=== PATIENT | male | born 1960 | race Caucasian/White ===

== ENCOUNTER 2023-08-19 06:25 | Day surgery (SDC) | payer OTHER, SELFPAY ==
[2023-08-03 07:59] VITALS: BMI 30.4
[2023-08-03 08:27] LABS: % Basophils 0.6 % (0-2); % Eosinophils 2.1 % (0-6); % Immature Granulocytes 0.4 % (0-0.5); % Lymphocytes 27.1 % (20.5-51.1); % Monocytes 9.7 % (1.7-9.3); % Neutrophils 60.1 % (42.2-75.2); Absolute Eosinophils 0.1 10^3/uL (0-0.7); Absolute Lymphocytes 1.3 10^3/uL (1.2-3.4); Absolute Monocytes 0.5 10^3/uL (0.1-0.6); Absolute Neutrophils 2.8 10^3/uL (1.4-6.5); Hemoglobin 14.4 g/dL (13.0-18.0); Mean Corp Hgb Conc. 34.3 g/dL (33.0-37.0); Mean Corpuscular Hgb 32.7 pg (27.0-31.0); Mean Corpuscular Volume 95.5 fL (80.0-94.0); Mean Platelet Volume 10.4 fL (7.4-10.4); Nucleated Red Blood Cells % 0 % (-); Platelet Count 234 10^3/uL (130-400); Red Cell Dist. Width 12.4 % (11.5-14.5); White Blood Cell Count 4.7 10^3/uL (4.8-10.8)
[2023-08-03 08:32] LABS: INR 1.19; PT 15.1 Sec (11.4-14.6)
[2023-08-03 08:33] LABS: ALT (SGPT) 14 U/L (0-50); AST (SGOT) 20 U/L (17-59); Albumin 3.7 g/dl (3.5-5.0); Alkaline Phosphatase 65 U/L (38-126); Blood Urea Nitrogen 18 mg/dl (9-20); Carbon Dioxide 27 mmol/L (22-30); Chloride 104 mmol/L (98-107); Estimated Creatinine Clearance 101 ml/min; Glucose 120 mg/dl (70-99); Magnesium 2.3 mg/dl (1.6-2.3); Potassium 4.6 mmol/L (3.5-5.1); Sodium 139 mmol/L (135-145); Total Bilirubin 0.6 mg/dl (0.2-1.3); Total Protein 6.3 g/dl (6.3-8.2); eGFR > 60.00
--- NOTE | 2023-08-03 14:54 | W.PN.UPDATE ---
Update Note
Progress Note Update
Pulmonary nodules incidentally noted on chest CT--faxed to PCP Dr. Mason Arango
--- NOTE | 2023-08-15 08:18 | OID.L.PAT ---
Pulmonary Nodule Pat Letter
- -
08/15/23
BUBBA BANUELOS
[address]
[place], [place]
Dear BUBBA,
A pulmonary nodule was seen on an imaging study done by [facility]. This was reviewed by the [facility] Pulmonary Nodule Advisory Board and the following recommendation was made:
Recommendation: Follow up with a Consulting Analyst
If you have any questions, please do not hesitate to contact your primary care physician. If you are in need of a Physician, you can go to [email or web address] and click on 'Find a Provider'. Type 'Family Medicine' in the search.
Oncology Nurse Navigator
[facility]
[phone]
--- NOTE | 2023-08-15 08:19 | OID.L.REC ---
Pulmonary Nodule Follow Up
- Recommendation
08/15/23
Pulmonary Nodule Review Recommendations
Your patient, BUBBA BANUELOS, had a pulmonary nodule seen on a CT Chest done on 08/03/23 in the [facility] Radiology Department.
This was reviewed by the [facility] Pulmonary Nodule Advisory Board and the following recommendation was made:
Recommendation: Follow up with a Shank Burnisher
If you have any questions please do not hesitate to contact us.
Sincerely,
Oncology Nurse Navigator
[facility]
[phone]
[2023-08-19] VITALS (19 sets, daily range): BP systolic 92–124; BP diastolic 59–80; BMI 29.8
--- NOTE | 2023-08-19 14:40 | ITS.CL.ABL ---
Director Of Financial Reporting - Ablation
Ablation
Procedure Report:
Primary Aviation Maintenance Instructor: Bartolo Hurtado MD
Procedure Date: 08/19/2023
Procedure
Electrophysiology Study, with RA, CS pacing and recording
Radiofrequency Ablation of Counterclockwise Cavotricuspid Isthmus-dependent Right Atrial Flutter
Three-dimensional Electroanatomic Mapping and Navigation
Patient History
See H&P for complete details
Patient is a pleasant 63 year old male with a past medical history significant for symptomatic persistent typical atrial flutter. Patient had early recurrence of typical AFL despite cardioversion.
Method
After informed consent was obtained, the patient was brought to the EP lab in a post-absorptive, non-sedated state. A peripheral IV was in place. Continuous electrocardiography, blood pressure and pulse oximetry monitoring were initiated and
cardioversion / defibrillator patch electrodes were positioned on the chest in an anterior-posterior orientation. Sedation was administered via the anesthesia services. A time-out was called. Local anesthesia was administered at the right and left
femoral vein access sites. Vascular access was achieved using modified Seldinger technique, and 3 sheaths were placed.
The patient entered the room in sinus rhythm/sinus bradycardia. A multipolar catheter were advanced to the coronary sinus. A mapping / ablation catheter was used to record and pace. Intracardiac ultrasound (ICE) was utilized for structural
assessment and monitoring. No evidence of pericardial effusion pre or post procedure. Three-dimensional electroanatomic mapping was utilized. Catheter ablation in the right atrium was performed as described below. Clockwise and counterclockwise
transisthmus time was determined prior to ablation. Through atrial extrastimuli and burst pacing atrial flutter initiation was attempted however patient was noninducible for arrhythmia. Ablation line was established from the tricuspid valve annulus
to the IVC-RA junction. Clockwise and counterclockwise trans-isthmus times were determined, and RA activation patterns confirmed bidirectional block. Interval measurements in NSR were made pre and post ablation. A waiting period was observed and
measurements were reassessed. Arrhythmia induction was attempted again and patient remained non-inducible.clockwise and counterclockwise transisthmus times remained prolonged and demonstrated bidirectional block. Following this, the procedure was
concluded.
At the end of the procedure, all catheters and sheaths were removed, hemostasis was assured in the standard fashion, and the patient was taken to the recovery area in stable condition.
Conduction Intervals (pre-ablation, in ms)
A-H H-V P-R QRS dur Q-T
77 47 166 88 408
Conduction Intervals (post-ablation, in ms)
A-H H-V P-R QRS dur Q-T
81 44 147 76 402
AV Conduction:
AVWB at 360 ms
AV Node ERP 600/250
AERP 600/250
No arrhythmia was inducible post ablation
Mapping and Ablation
Utilizing electroanatomic three-dimensional navigation, a 3.5 mm tip [employer] irrigated ablation catheter was advanced to the right atrium with the assistance of an 11.5 Fr Agilis steerable long sheath. An electroanatomic three-dimensional map
of the right atrium was constructed, with careful attention to anatomic landmarks, including the coronary sinus, IVC-RA and SVC-RA junction, tricuspid valve annulus, and region of the His bundle electrogram.
An ablation line was created from the tricuspid annulus to the IVC in the 6:00 position (BELIZEAN clock). Power was titrated between 30 and 40 Palmer. The line was completed and bidirectional block was confirmed with lateral pacing from the ablation
catheter and from the CS pacing. The ablation line was mapped to ensure widely spaced double potentials, and after a 20 minute waiting period, bidirectional block persisted. No arrhythmia was induced post-procedure. No evidence of AF noted during
procedure.
Ablation Summary
Total ablation time: 8 minutes 54 seconds
Estimated Blood Loss
<20 mL
Fluoroscopy Time 2.4
Radiation Dose 8.92 mGy
DAP 1.05
Complications
None
Conclusions
1. Successful ablation of the cavotricuspid isthmus with bidirectional block.
2. No inducible arrhythmias post-procedure
Recommendations
- Anticipate discharge home today
- Bedrest with straight leg precautions for four hours
- Resume anticoagulation tonight if patient/groins stable
- Continue remaining home medications as indicated
- Follow-up in clinic in 4-6 weeks or sooner if needed
Сергей Hwang,
Clinical Cardiac Electrophysiology
cc: Bartolo Hurtado MD; Tyler Tuttle MD
== END 2023-08-19 14:53 | disposition home or self-care (01) ==
LOC: CATH 06:25
PROVIDERS: ATTENDING PHYSICIAN Internal Medicine Cardiovascular Disease; FAMILY PHYSICIAN Family Medicine; OTHER PHYSICIAN Internal Medicine Cardiovascular Disease
DX: I48.92 Unspecified atrial flutter (principal); I48.0 Paroxysmal atrial fibrillation; E78.5 Hyperlipidemia, unspecified; I87.2 Venous insufficiency (chronic) (peripheral); L40.9 Psoriasis, unspecified; Z79.01 Long term (current) use of anticoagulants
CPT/HCPCS: C1894; C1766; C2630; C1759; 36415; 75572; 76937; 80053; 83735; 85025; 85610; 86850; 86900; 86901; 93005; 93653; Q9967

== ENCOUNTER 2024-01-05 17:44 | Emergency (ER) | payer BC, SELFPAY ==
[2024-01-05 17:46] VITALS: BP 171/95
[2024-01-05 18:07] LABS: % Basophils 0.2 % (0-2); % Eosinophils 0.4 % (0-6); % Immature Granulocytes 0.3 % (0-0.5); % Lymphocytes 8.4 % (20.5-51.1); % Monocytes 7.4 % (1.7-9.3); % Neutrophils 83.3 % (42.2-75.2); Absolute Eosinophils 0.1 10^3/uL (0-0.7); Absolute Lymphocytes 1.2 10^3/uL (1.2-3.4); Absolute Neutrophils 11.5 10^3/uL (1.4-6.5); Hematocrit 42.4 % (39.0-52.0); Hemoglobin 14.8 g/dL (13.0-18.0); Mean Corp Hgb Conc. 34.9 g/dL (33.0-37.0); Mean Corpuscular Hgb 32.6 pg (27.0-31.0); Mean Corpuscular Volume 93.4 fL (80.0-94.0); Mean Platelet Volume 10.5 fL (7.4-10.4); Nucleated Red Blood Cells % 0 % (-); Platelet Count 217 10^3/uL (130-400); Red Blood Cell Count 4.54 10^6/uL (4.70-6.10); Red Cell Dist. Width 12.5 % (11.5-14.5); White Blood Cell Count 13.9 10^3/uL (4.8-10.8)
[2024-01-05 18:23] LABS: ALT (SGPT) 18 U/L (0-50); AST (SGOT) 23 U/L (17-59); Albumin 4.6 g/dl (3.5-5.0); Alkaline Phosphatase 83 U/L (38-126); Blood Urea Nitrogen 13 mg/dl (9-20); Calcium 9.6 mg/dl (8.4-10.2); Carbon Dioxide 29 mmol/L (22-30); Chloride 99 mmol/L (98-107); Glucose 115 mg/dl (70-99); Lipase 121 U/L (23-300); Potassium 4.5 mmol/L (3.5-5.1); Sodium 136 mmol/L (135-145); Total Bilirubin 0.9 mg/dl (0.2-1.3); Total Protein 7.2 g/dl (6.3-8.2); eGFR > 60.00
[2024-01-05 18:27] VITALS: BP 131/66
--- NOTE | 2024-01-05 18:57 | ED.GENMED ---
History of Present Illness
General
Chief Complaint: Abdominal Symptoms
Source: patient
Exam Limitations: none
Time Seen by Provider: 01/05/24 18:44
History of Present Illness
History of Present Illness:
This is a 63 year old male that comes in with c/o epigastric pain. States that for 2 weeks he was on vacation and was doing some drinking that was pretty heavy. States that last night he started with this upper abd pain that was slight and then at
12 midnight he awoke with increased pain and he thought he had food poisoning as he had eaten fish. States that his thought he was having diarrhea and she gave him Imodium and he took Tylenol. States that he did not sleep well all night. States
that he went to work today and by the end of the day the pain was worse. States that he felt he needed to lay down. States that his pain is in the upper abd pain and he feels like it is a cramp that won't let go. States that he has a slight
headache. Denies any fever, chills, chest pain, SOB, nausea, vomiting, diarrhea, dizziness, urinary burning.
Past History
Past History
ED Past Medical History: Arrthythmia (atrial fib); Negative Asthma, HTN, Hypercholesterolemia or NIDDM
ED Past Surgical History: Appendectomy, Cardiac (Ablation) and Orthopedic (Left knee surgery, Bilateral carpal tunnel)
Social History
Tobacco: Non-smoker
Alcohol: Occasional
Personal:
Living: with family
Employment: Employed
Review of Systems
Review of Systems
All Other Systems: ROS reviewed and negative except as documented in HPI and ROS
Constitutional: Reports no symptoms; Denies fever or chills
EENT: Reports no symptoms
Respiratory: Reports no symptoms; Denies cough or trouble breathing
Cardiac: Reports no symptoms; Denies chest pain
ABD/GI: Reports abdominal pain (Epigastric area); Denies nausea, vomiting or diarrhea
: Reports no symptoms; Denies dysuria, frequency or urgency
Musculoskeletal: Reports no symptoms
Skin: Reports no symptoms
Neurological: Reports headache; Denies dizzy
Psychiatric: Reports no symptoms
Phy Exam
General Physical Exam
General Presentation: well appearing and no apparent distress
General age: appears stated age
General Skin: warm and dry
General Habitus: normal
General Mental: alert
General Hydration: appears well hydrated
ENT Exam
ENT Exam: TM's normal, pharynx normal and neck supple
Eye Exam
Eye Exam: EOMI
Cardiovascular Exam
Cardiovascular Exam: regular rate/rhythm, no edema, no murmur and normal peripheral pulses
Pulmonary Exam
Pulmonary Exam: lungs clear, no respiratory distress, no rales, chest non tender, no crackles, no rhonchi, no wheezing and no cough
Gastrointestinal Exam
Gastrointestinal Exam: normal bowel sounds, non tender, soft, no organomegaly, no pulsatile mass and non distended
Musculoskeletal Exam
Musculoskeletal Exam: full ROM, neck pain, back pain and no edema
Skin Exam
Skin Exam: normal color, warm/dry, no rash and no petechia
Psychiatric Exam
Psychiatric Exam: normal mood/affect
Course
Orders/Labs/Results
Orders:
Orders
01/05/24 17:51
Electrocardiogram (*1) Urgent
Reason for Study: Abdominal Pain
EKG- Treatment ONCE
01/05/24 17:58
Complete Blood Count/With Diff Urgent
Comprehensive Metabolic Panel Urgent
Lipase Urgent
01/05/24 18:56
Ketorolac [Toradol] 30 mg IV NOW STA
Pantoprazole [Protonix IV] 40 mg IV NOW STA
US Abdomen Complete/Upper Urgent
Comment:
Reason For Exam: Upper abd pain
01/05/24 19:56
Sucralfate Suspension [Carafate Suspension] 1 gm PO NOW STA
Abnormal Lab Results
01/05/24
17:58
WBC 13.9 H 10^3/uL
(4.8-10.8)
RBC 4.54 L 10^6/uL
(4.70-6.10)
MCH 32.6 H pg
(27.0-31.0)
MPV 10.5 H fL
(7.4-10.4)
Absolute Neuts (auto) 11.5 H 10^3/uL
(1.4-6.5)
Absolute Monos (auto) 1.0 H 10^3/uL
(0.1-0.6)
Neutrophils % 83.3 H %
(42.2-75.2)
Lymphocytes % 8.4 L %
(20.5-51.1)
Glucose 115 H mg/dl
(70-99)
01/05/24 17:58
01/05/24 17:58
Leukocytosis, Glucose nonfasting. Lipase normal at 121
Vital Signs
Initial and Last Documented VS:
Initial Vital Signs
Temp Pulse Resp BP Pulse Ox
97.6 F 55 16 171/95 98
01/05/24 17:46 01/05/24 17:46 01/05/24 17:46 01/05/24 17:46 01/05/24 17:46
Last Documented Vital Signs
Temp Pulse Resp BP Pulse Ox
97.6 F 68 18 125/69 99
01/05/24 17:46 01/05/24 20:23 01/05/24 20:23 01/05/24 20:06 01/05/24 20:23
MDM/Problems Addressed
Differential Diagnosis Includes:
Gastritis, Ulcers,
MDM/Problems Addressed:
This is a 63 year old female that comes in with c/o epigastric pain. State that he had been going some heavy [place]. States that last night he started with a little pain and then at 12 midnight the pain got
worse. States that he did not sleep well.
Will check labs, US and medicated for pain.
back into see patient. Explained that his Ultrasound is unremarkable. This is most likely a gastritis. Will place patient on Protonix for the next 10 days and Carafate. patient to stay away form the alcohol and caffeine to help let the stomach
lining heal itself. Patient to follow up with the PCP. Return with increased or changing pain, fever, vomiting, or any other concerns.
Chronic conditions affecting care:
NA
Acute Exacerbation and/or Progression of Chronic Illness:
NA
*Radiology
Radiology exam reviewed: radiology read reviewed (US= Unremarkable abdominal Ultrasound)
*Pulse Oximetry
Patient hypoxic: no
*EKG
Interpreted by ED Provider?: Yes
Heart Rate: 59
Rate: normal
Rhythm: sinus
[place]: normal axis
Interval: normal interval
QRS Pattern: normal QRS
Ischemia: no ischemia (Checked by Dr. Ramírez)
*Director Patient Interpretation
Rate: Director Patient- N/A
*Critical Care Note
Total Time (30-74mins, 75-104mins- exclusive of procedures): Not Applicable
ED Attending Note
-
Portions of this chart may have been created with voice recognition software.� Occasional wrong word or��sound alike� substitutions may have occurred due to the inherent limitations of voice recognition software.
Discharge Plan
Departure
Patient Disposition: Home (Routine Discharge)
Date of Disposition: 01/05/24
Time of Disposition: 20:05
Patient with high blood pressure during this ER visit?: Yes
Condition: Good
Covid-19: Not Applicable
Discharge Problem:
Gastritis
Instructions: Albin Diet, Gastritis (DC), BLOOD PRESSURE
Prescriptions:
New
pantoprazole [Protonix] 40 mg tablet,delayed release (DR/EC)
40 mg PO DAILY Qty: 10 0RF
sucralfate [Carafate] 1 gram tablet
1 g PO ACHS Qty: 40 0RF
Rx Instructions:
30min-1hour before meals and HS. Dissolve in 10ml of water and drink
No Action
Eliquis 5 mg Tablet
5 mg PO Q12H
magnesium 200 mg Tablet
400 mg PO DAILY
Zyflamend
2 tab PO DAILY
Procerin
1 tab PO DAILY
Referrals:
Tyler Tuttle MD [Family Provider] - Call in 1-3 days for appt
Activity Restrictions/Additional Instructions:
As discussed, your blood work shows that your WBC are slightly elevated. Your Ultrasound is normal. This is most likely a Gastritis or a developing ulcer. You have had 2 prescriptions sent to your Pharmacy. The first is for Protonix that you will
take daily. Please take this after your Eliquis about 2 hours later. The Second is for Carafate 1gm that you will take 30min to 1 hour before meals and again at bedtime. Please try and stay way from Alcohol and caffeine until you are feeling
better. Follow up with the family doctor for recheck. IF YOU HAVE INCREASED OR CHANGING PAIN, FEVER, VOMITING, OR YOU HAVE ANY OTHER CONCERNS PLEASE RETURN TO THE EMERGENCY ROOM.
Interventions
Interventions:
*Risk Screen - Suicide Last Done: 01/05/24 18:30
*General Assessment Last Done: 01/05/24 18:30
*Neglect/Abuse Screening Last Done: 01/05/24 18:30
ED- Fall Risk Assessment Last Done: 01/05/24 18:30
*ED COVID-19 Vaccine History Last Done: 01/05/24 18:30
*Nursing Disposition Last Done: 01/05/24 20:23
UJ-Xedwss-Qqfvziijay Assessment Last Done: 01/05/24 18:30
Discharge Date and Time
Discharge Date/Time: 01/05/24 20:25
Print Language: IRISH
[2024-01-05 19:00] VITALS: BP 138/75
[2024-01-05] MEDS: PROTONIX IV 40 MG IV (19:32)
[2024-01-05] MEDS: TORADOL 30 MG IV (19:33)
[2024-01-05 20:06] VITALS: BP 125/69
[2024-01-05] MEDS: CARAFATE SUSPENSION 1 GM PO (20:12)
== END 2024-01-05 20:25 | disposition home or self-care (01) ==
LOC: EMR 17:44
PROVIDERS: EMERGENCY PHYSICIAN Emergency Medicine; FAMILY PHYSICIAN Family Medicine
DX: K29.70 Gastritis, unspecified, without bleeding (principal); R03.0 Elevated blood-pressure reading, without diagnosis of hypertension
CPT/HCPCS: 99285; 96374; 96375; 76700; 80053; 83690; 85025; 93005